=== PATIENT | male | born 1995 | race Caucasian/White ===

== ENCOUNTER 2024-02-01 23:08 | Emergency (ER) | payer BC, OTHER ==
[2024-02-02] MEDS: Proparacaine 0.5% Ophth Soln 15 ML Bottle EYEBOTH ONE (00:11)
[2024-02-02] MEDS: Ciprofloxacin 0.3% Ophth Soln 5 ML Bottle EYELF SCH (01:25)
[2024-02-02] MEDS: Acetaminophen/oxyCODONE 325-5 MG Tab PO ONE (01:26)
[2024-02-02] MEDS: Ondansetron 4 MG Tab.DIS PO ONE (01:27)
[2024-02-02] MEDS: HYDROmorphone 1 MG/ML Syringe IM ONE (03:23)
[2024-02-02] MEDS: Promethazine 25 MG Tab PO ONE (03:40)
[2024-02-02] MEDS: Ketorolac 0.5% Ophth Soln 5 ML Bottle EYELF ONE (03:52)
[2024-02-02 03:56] VITALS: BP 115/68; PULSE 78
== END 2024-02-02 04:04 | disposition home or self-care (01) ==
LOC: JD.ED 23:08
DX: T15.02XA Foreign body in cornea, left eye, initial encounter (principal); Z88.0 Allergy status to penicillin; Z79.899 Other long term (current) drug therapy; X58.XXXA Exposure to other specified factors, initial encounter
CPT/HCPCS: 65220; 96372; 99283; A9270; J1170; J8597; 65205; J3490

== ENCOUNTER 2024-07-03 14:38 | Emergency (ER) | payer BC ==
[2024-07-03 16:09] VITALS: BP 130/84; PULSE 91
== END 2024-07-03 16:06 | disposition home or self-care (01) ==
LOC: JD.ED 14:38
DX: S20.222A Contusion of left back wall of thorax, initial encounter (principal); Z88.0 Allergy status to penicillin; W17.89XA Other fall from one level to another, initial encounter
CPT/HCPCS: 71250; 71250-26; 99283

== ENCOUNTER 2024-08-22 03:14 | Emergency (ER) | payer BC ==
[2024-08-22 03:56] LABS: BASOPHILS PERCENT AUTO 0.3 % (0.0-1.0); EOSINOPHILS ABSOLUTE AUTO 0.1 K/mm3 (0.0-0.4); EOSINOPHILS PERCENT AUTO 0.6 % (0.0-6.0); HEMATOCRIT 51.3 % (42.0-52.0); HEMOGLOBIN 17.6 gm/dl (14.0-18.0); IMMATURE GRAN ABSOLUTE AUTO 0.04 K/mm3 (0.00-0.05); IMMATURE GRAN PERCENT AUTO 0.5 % (0.0-0.4); LYMPHOCYTES ABSOLUTE AUTO 2.4 K/mm3 (1.0-4.8); LYMPHOCYTES PERCENT AUTO 29.8 % (24.0-44.0); MEAN CORPUSCULAR HEMOGLOBIN 31.5 pg (28.0-32.0); MEAN CORPUSCULAR HGB CONC 34.3 g/dl (32.0-36.0); MEAN CORPUSCULAR VOLUME 91.9 fl (83.0-99.0); MEAN PLATELET VOLUME 10.6 fl (9.4-12.4); MONOCYTES ABSOLUTE AUTO 0.5 K/mm3 (0.0-0.8); MONOCYTES PERCENT AUTO 6.8 % (0.0-8.0); PLATELET COUNT,PLT 306 K/mm3 (150-400); RED BLOOD CELL COUNT 5.58 M/mm3 (4.52-5.90); WHITE BLOOD CELL COUNT,WBC 7.98 K/mm3 (3.9-11.3)
[2024-08-22] MEDS: Famotidine 20 MG Tab PO ONE (04:13)
[2024-08-22] MEDS: Alum Hydrox/Mag Hydrox/Simeth 30 ML, Lidocaine 2% 15 ML PO ONE (04:14)
[2024-08-22 04:33] LABS: A/G RATIO 0.9 (1-2); ALBUMIN 3.8 g/dl (3.4-5.0); ANION GAP 12.9 (5-15); BILIRUBIN TOTAL 0.2 mg/dL (0.2-1.0); BUN/CREATININE RATIO 7.5 (14-18); CALCIUM 8.6 mg/dL (8.5-10.1); CREATININE 1.2 mg/dL (0.7-1.3); EST CRCL DRUG DOSING (CG) 91.24 mL/min; POTASSIUM,K 3.9 mEq/L (3.5-5.1)
[2024-08-22 04:55] LABS: APPEARANCE,URINE CLEAR (Clear); BILIRUBIN,URINE NEGATIVE (Negative); COLOR,URINE YELLOW (Yellow); GLUCOSE,URINE NEGATIVE (Negative); KETONES,URINE NEGATIVE (Negative); LEUKOCYTE ESTERASE,URINE NEGATIVE (Negative); NITRITE,URINE NEGATIVE (Negative); OCCULT BLOOD,URINE NEGATIVE (Negative); PROTEIN,URINE NEGATIVE (Negative); UROBILINOGEN,URINE 0.2 (0.2-1.0)
[2024-08-22 06:02] VITALS: BP 124/78; PULSE 74
== END 2024-08-22 05:58 | disposition home or self-care (01) ==
LOC: JD.ED 03:14
DX: R10.13 Epigastric pain (principal); R10.11 Right upper quadrant pain; R10.12 Left upper quadrant pain; Z88.0 Allergy status to penicillin; Z79.899 Other long term (current) drug therapy
CPT/HCPCS: 36415; 76705; 80053; 81003; 83690; 85025; 99284; A9270